=== PATIENT | male | born 1970 | race Caucasian/White ===

== ENCOUNTER 2022-09-26 10:48 | Emergency (ER) | payer MEDICAID, OTHER ==
[~2022-09-26] VITALS: Ht 170.2 cm; Wt 190.0 kg
[2022-09-26 11:20] VITALS: BP 112/58; TEMP 98
[2022-09-26] MEDS ORDERED: IPRATROPIUM BROMIDE (0.02%) 0.5MG/2.5ML NEB HHN STA (11:21)
[2022-09-26] MEDS ORDERED: METHYLPREDNISOLONE SOD SUCC 125MG/2ML (ACT-O-VIAL) IV STA (11:21)
[2022-09-26 11:30] VITALS: PULSE 67; RESP 22; O2SAT 91
[2022-09-26] MEDS ORDERED: MAGNESIUM 2 G PREMIX 50 ML IV ONE (11:30)
[2022-09-26] MEDS: ALBUTEROL (0.083%) 2.5MG/3ML NEB HHN SCH ×3 (11:53→13:00)
[2022-09-26 12:00] VITALS: PULSE 75; RESP 18; O2SAT 100
[2022-09-26] MEDS ORDERED: METHYLPREDNISOLONE SOD SUCC 125MG VIAL IV NR (12:00)
[2022-09-26 12:20] VITALS: PULSE 70; RESP 18; O2SAT 100
[2022-09-26 12:48] LABS: HEMATOCRIT. 47.4 % (42.0-52.0); HEMOGLOBIN. 15.3 g/dL (14.0-18.0); MEAN CORPUSCULAR HEMOGLOBIN 27.2 pg (28.0-32.0); MEAN CORPUSCULAR HGB CONC 32.4 g/dL (31.0-37.0); MEAN CORPUSCULAR VOLUME 83.8 fL (80.0-94.0); PLATELET 186 x1000/uL (130-400); RED BLOOD CELL COUNT 5.65 mill/uL (4.7-6.1); RED CELL DISTRIBUTION WIDTH 17.1 % (11.6-14.6); WHITE BLOOD COUNT 12.3 x1000/uL (4.5-11.0)
[2022-09-26 13:01] LABS: DIFFERENTIAL COMMENT 1
[2022-09-26 13:27] LABS: ANISOCYTOSIS 1+; PLATELET ESTIMATE NORMAL
[2022-09-26 14:32] LABS: CHLORIDE 104 mEq/L (98-107); INDEX HEMOLYSI 1 (1-3); INDEX ICTERIC 1 (1-4); INDEX LIPEMIC 1 (1-3); POTASSIUM 4.1 mEq/L (3.5-5.1); SODIUM 138 mEq/L (136-145)
[2022-09-26 14:43] LABS: ALANINE AMINOTRANSFERASE 24 IU/L (13-61); ALBUMIN 3.2 g/dL (3.4-5.0); ASPARTATE AMINOTRANSFERASE 16 IU/L (15-37); BILIRUBIN TOTAL 0.6 mg/dL (0.1-1.0); CALCIUM 8.9 mg/dL (8.5-10.1); CARBON DIOXIDE 29 mEq/L (21-32); CREATININE 1.4 mg/dL (0.6-1.3); GLUCOSE 116 mg/dL (70-105); NT PRO B-TYPE NATRIURETIC PEP 286 pg/mL (5-125); PROTEIN TOTAL 8.3 g/dL (6.0-8.3); TROPONIN I HIGH SENSITIVITY 14 ng/L (<78); UREA NITROGEN BLOOD 21 mg/dL (7-21)
[2022-09-26] MEDS ORDERED: ALBU2.5V13 NEB (14:49)
[2022-09-26] MEDS ORDERED: ALBU6.7H3 INH (14:49)
[2022-09-26] MEDS ORDERED: P20 MT (14:49)
[2022-10-22] MEDS ORDERED: IBUP-2029 MT (23:55)
[2022-10-22] MEDS ORDERED: ATOR20TA MT (23:55)
[2022-10-22] MEDS ORDERED: DIPH25CA83 MT (23:55)
[2022-10-22] MEDS ORDERED: provigil PO (23:55)
[2022-10-22] MEDS ORDERED: MULT-1116 MT (23:55)
[2022-10-22] MEDS ORDERED: FAMO-134 MT (23:55)
[2022-10-22] MEDS ORDERED: TAMS-11 MT (23:55)
[2022-10-22] MEDS ORDERED: SPIR25TA MT (23:55)
[2022-10-22] MEDS ORDERED: METO-385 MT (23:55)
[2022-10-22] MEDS ORDERED: SERT50TA MT (23:55)
[2022-10-22] MEDS ORDERED: METO-539 MT (23:55)
[2022-10-22] MEDS ORDERED: ASPI-1497 MT (23:55)
[2022-10-22] MEDS ORDERED: GABA-290 MT (23:55)
[2022-10-22] MEDS ORDERED: AMLO10TA4 MT (23:55)
[2022-10-22] MEDS ORDERED: LORA-249 PO (23:55)
[2022-10-22] MEDS ORDERED: FURO-151 MT (23:55)
[2022-10-22] MEDS ORDERED: PROT40 MT (23:55)
[2022-10-23] MEDS ORDERED: P20 PO (08:04)
== END 2022-09-26 17:19 | disposition home or self-care (01) ==
LOC: ER 11:02
DX: J44.1 Chronic obstructive pulmonary disease with (acute) exacerbation (principal); I11.0 Hypertensive heart disease with heart failure; I50.9 Heart failure, unspecified
CPT/HCPCS: 80053; 83880; 85025; 84484; 36415; 71045; 94640; 93005; 96365; 96366; 96375; 99285; J3475; J2930; Z7610 ×3